=== PATIENT | male | born 1955 | race Asian ===

== ENCOUNTER 2017-10-12 08:33 | Emergency (ER) | payer OTHER ==
[~2017-10-12] VITALS: Ht 165.1 cm; Wt 81.6 kg
[2017-10-12] MEDS ORDERED: SODIUM CHLORIDE 0.9% 1,000 ML IV ONE (08:48)
[2017-10-12 09:05] LABS: Urine RBC None Seen /hpf (0 - 3)
[2017-10-12 09:12] LABS: Urine Bilirubin Negative (Negative); Urine Blood Negative /uL (Negative); Urine Color Yellow (Yellow); Urine Glucose Normal (Normal); Urine Ketone Negative (Negative); Urine Mucus FEW (None Seen); Urine Nitrite Negative (Negative); Urine Urobilinogen Normal (Negative); Urine pH 5.5 (5.0-8.0)
[2017-10-12 09:25] LABS: Basophils # (auto) 0.1 uL; Eosinophils # (auto) 0.3 uL; Hemoglobin 17.7 g/dL (13.5-17.5); Lymphocytes # (auto) 2.2 uL; Mean Corpuscular Volume 87.5 fL (80.0-100.0); Monocytes # (auto) 0.5 uL; Neutrophils # (auto) 3.4 uL; Nucleated Red Blood Cells % 0.1 %; Red Cell Distribution Width 13.2 % (11.8-14.3); White Blood Cell 6.5 10^3/uL (4.4-10.8)
[2017-10-12 09:28] LABS: Basophils % (auto) 1.1 % (0.0-2.0); Eosinophils % (auto) 4.4 % (0.0-7.0); Hematocrit 51.8 % (41.0-53.0); Lymphocytes % (auto) 33.8 % (10.0-50.0); Mean Corpuscular Hemoglobin 29.9 pg (28.0-32.0); Mean Corpuscular Hgb Conc. 34.2 g/dL (32.0-36.0); Monocytes % (auto) 7.8 % (0.0-12.0); Neutrophils % (auto) 52.9 % (37.0-80.0); Platelet Count (auto) 141 10^3/uL (140-450)
[2017-10-12 09:58] LABS: Alkaline Phosphatase 106 U/L (45-117); Anion Gap 11 (5-15); Aspartate Aminotransferase 27 U/L (15-37); BUN/Creatinine Ratio 13.3; Bilirubin, Total 0.6 mg/dL (0.2-1.0); Blood Urea Nitrogen 13 mg/dL (7-18); Calcium 8.4 mg/dL (8.5-10.1); Carbon Dioxide 26 mmol/L (21-32); Chloride 104 mmol/L (98-107); GFR African American 100 mL/min; GFR Non-African American 83 mL/min; Glucose 147 mg/dL (74-106); Magnesium 2.3 mg/dL (1.6-2.6); Potassium 4.1 mmol/L (3.5-5.1); Sodium 141 mmol/L (136-145); Total Protein 7.3 g/dL (6.4-8.2)
[2017-10-12 11:15] VITALS: BP 137/92
== END 2017-10-12 11:36 | disposition home or self-care (01) ==
LOC: ER 08:33
DX: G93.9 Disorder of brain, unspecified (principal); R10.13 Epigastric pain
CPT/HCPCS: 36415; 70450; 74176; 80053; 81001; 83735; 84484; 85025; 93005; 94761; 96360; 99285; J7030

== ENCOUNTER 2020-09-02 11:09 | Inpatient (IN) | payer OTHER ==
[~2020-09-02] VITALS: Ht 165.1 cm; Wt 81.4 kg
[2020-09-02 13:01] LABS: Basophils # (auto) 0 10 ^3/uL (0-0.2); Basophils % (auto) 0.6 % (0.0-2.0); Eosinophils # (auto) 0.3 10 ^3/uL (0-0.8); Eosinophils % (auto) 4.5 % (0.0-7.0); Hematocrit 49.7 % (41.0-53.0); Hemoglobin 16.6 g/dL (13.5-17.5); Lymphocytes # (auto) 1.3 10 ^3/uL (0.4-5.4); Lymphocytes % (auto) 18.9 % (10.0-50.0); Mean Corpuscular Hemoglobin 29.5 pg (28.0-32.0); Mean Corpuscular Hgb Conc. 33.4 g/dL (32.0-36.0); Mean Corpuscular Volume 88.2 fL (80.0-100.0); Monocytes # (auto) 0.7 10 ^3/uL (0-1.3); Monocytes % (auto) 10.1 % (0.0-12.0); Neutrophils # (auto) 4.4 10 ^3/uL (1.6-8.6); Neutrophils % (auto) 65.9 % (37.0-80.0); Platelet Count (auto) 126 10^3/uL (140-450); Red Blood Cells 5.63 10^6/uL (4.5-5.90); Red Cell Distribution Width 13.5 % (11.8-14.3); White Blood Cell 6.7 10^3/uL (4.4-10.8)
[2020-09-02 13:12] LABS: Albumin 3.7 g/dL (3.4-5.0); Calcium 8.7 mg/dL (8.5-10.1); Potassium 4.8 mmol/L (3.5-5.1)
[2020-09-02 13:18] LABS: BUN/Creatinine Ratio 11.6; Bilirubin, Total 0.8 mg/dL (0.2-1.0); Total Protein 7.2 g/dL (6.4-8.2)
[2020-09-02] MEDS ORDERED: ONDANSETRON HCL 4 MG/2 ML VIAL IV ONE (13:45)
[2020-09-02] MEDS ORDERED: metroNIDAZOLE 500MG/100ML 100 ML IV ONE (13:45)
[2020-09-02] MEDS ORDERED: MORPHINE SULFATE 4 MG/ML SYR/VIAL IV ONE (13:45)
[2020-09-02] MEDS ORDERED: PROMETHAZINE HCL 25 MG/ML 1ML IV PRN (15:45)
[2020-09-02] MEDS ORDERED: cefTRIAXone 1GM/50ML D5W 50 ML IV ONE (15:45)
[2020-09-02] MEDS ORDERED: ACETAMINOPHEN 500 MG TAB PO PRN (15:45)
[2020-09-02] MEDS ORDERED: MORPHINE SULF INJ 2 MG/ML SYRINGE 1ML IV PRN (15:45)
[2020-09-02] MEDS ORDERED: traMADol HCL 50 MG TAB PO PRN (15:45)
[2020-09-02] MEDS ORDERED: DEXTROSE (50%) 50ML SYRG IV PRN (15:45)
[2020-09-02] MEDS ORDERED: TEMAZEPAM 15 MG CAP PO PRN (15:45)
[2020-09-02] MEDS: ENOXAPARIN SOD 30 MG/0.3 ML SYRINGE SC SCH (16:35)
[2020-09-02] MEDS: FAMOTIDINE (10MG/ML) 2ML VL IV SCH (16:35)
[2020-09-02] MEDS: SODIUM CHLORIDE 0.9% 1,000 ML IV SCH ×2 (16:35→21:39)
[2020-09-02] MEDS: InsuLIN REG 1unit/0.01ml Soln (100units/ml) SC SCH ×2 (16:54→21:35)
[2020-09-02] MEDS: ACCU-CHEK COMFORT CURVE STRIP VI SCH ×2 (16:54→21:34)
[2020-09-02 18:09] LABS: Urine Bacteria NONE SEEN /hpf (None Seen); Urine Blood Negative /uL (Negative); Urine Specific Gravity 1.004 (1.001-1.035); Urine WBC 1 /hpf (0 - 3)
[2020-09-02 20:40] VITALS: BP 144/95
[2020-09-02] MEDS: metroNIDAZOLE 500MG/100ML 100 ML IV SCH (21:34)
[2020-09-02 22:00] VITALS: BP_SYST 144; BP_DIAS 77; BP_DIAS 95
[2020-09-03] MEDS ORDERED: METF-370 PO (00:42)
[2020-09-03] MEDS ORDERED: ATOR20TA50 PO (00:42)
[2020-09-03] MEDS: SODIUM CHLORIDE 0.9% 1,000 ML IV SCH ×3 (04:41→15:48)
[2020-09-03 05:00] VITALS: BP 137/86
[2020-09-03] MEDS: ACCU-CHEK COMFORT CURVE STRIP VI SCH ×4 (06:21→22:02)
[2020-09-03] MEDS: metroNIDAZOLE 500MG/100ML 100 ML IV SCH ×3 (06:21→21:49)
[2020-09-03] MEDS: InsuLIN REG 1unit/0.01ml Soln (100units/ml) SC SCH ×4 (06:24→22:02)
[2020-09-03 06:37] LABS: Basophils # (auto) 0 10 ^3/uL (0-0.2); Basophils % (auto) 0.4 % (0.0-2.0); Eosinophils # (auto) 0.1 10 ^3/uL (0-0.8); Eosinophils % (auto) 2.4 % (0.0-7.0); Hematocrit 46.8 % (41.0-53.0); Hemoglobin 15.8 g/dL (13.5-17.5); Lymphocytes # (auto) 0.9 10 ^3/uL (0.4-5.4); Lymphocytes % (auto) 16.8 % (10.0-50.0); Mean Corpuscular Hemoglobin 29.8 pg (28.0-32.0); Mean Corpuscular Hgb Conc. 33.7 g/dL (32.0-36.0); Mean Corpuscular Volume 88.4 fL (80.0-100.0); Monocytes # (auto) 0.6 10 ^3/uL (0-1.3); Monocytes % (auto) 10.4 % (0.0-12.0); Neutrophils # (auto) 3.8 10 ^3/uL (1.6-8.6); Platelet Count (auto) 123 10^3/uL (140-450); Red Cell Distribution Width 13.4 % (11.8-14.3); White Blood Cell 5.5 10^3/uL (4.4-10.8)
[2020-09-03 06:53] LABS: Albumin 3.2 g/dL (3.4-5.0); Calcium 7.9 mg/dL (8.5-10.1); Potassium 4.5 mmol/L (3.5-5.1)
[2020-09-03 06:57] LABS: BUN/Creatinine Ratio 10.7; Bilirubin, Total 0.5 mg/dL (0.2-1.0); Total Protein 6.2 g/dL (6.4-8.2)
[2020-09-03 08:46] VITALS: BP 130/70
[2020-09-03] MEDS: FAMOTIDINE (10MG/ML) 2ML VL IV SCH (11:28)
[2020-09-03] MEDS: ENOXAPARIN SOD 30 MG/0.3 ML SYRINGE SC SCH (11:28)
[2020-09-03] MEDS: cefTRIAXone 1GM/50ML D5W 50 ML IV SCH (11:28)
[2020-09-03 13:00] VITALS: BP 138/89
[2020-09-03 17:00] VITALS: BP 151/87
[2020-09-03 22:00] VITALS: BP_SYST 104; BP_SYST 115; BP_DIAS 58; BP_DIAS 59
[2020-09-04] MEDS: SODIUM CHLORIDE 0.9% 1,000 ML IV SCH ×2 (00:43→09:45)
[2020-09-04 05:00] VITALS: BP 127/73
[2020-09-04] MEDS: metroNIDAZOLE 500MG/100ML 100 ML IV SCH ×2 (06:00→14:00)
[2020-09-04] MEDS: InsuLIN REG 1unit/0.01ml Soln (100units/ml) SC SCH ×2 (06:28→11:30)
[2020-09-04] MEDS: ACCU-CHEK COMFORT CURVE STRIP VI SCH ×2 (06:29→11:30)
[2020-09-04 07:58] LABS: Potassium 4.3 mmol/L (3.5-5.1)
[2020-09-04 08:00] VITALS: BP 123/75
[2020-09-04 08:05] LABS: BUN/Creatinine Ratio 10.6; Calcium 7.9 mg/dL (8.5-10.1); Magnesium 2.4 mg/dL (1.6-2.6)
[2020-09-04] MEDS: cefTRIAXone 1GM/50ML D5W 50 ML IV SCH (09:00)
[2020-09-04] MEDS: ENOXAPARIN SOD 30 MG/0.3 ML SYRINGE SC SCH (10:00)
[2020-09-04] MEDS: FAMOTIDINE (10MG/ML) 2ML VL IV SCH (10:00)
[2020-09-04 12:00] VITALS: BP 145/72
[2020-09-04] MEDS ORDERED: LEVO500T21 PO (13:26)
[2020-09-04] MEDS ORDERED: METR500T PO (13:26)
[2020-09-04 17:00] VITALS: BP 159/81
== END 2020-09-04 17:50 | disposition home or self-care (01) | DRG 391 ==
LOC: ER 11:09 → OVERFLOW 11:10 → WEST WING 20:40
PROVIDERS: ADMIT Internal Medicine; ATTEND Internal Medicine
DX: K57.32 Diverticulitis of large intestine without perforation or abscess without bleeding (principal); N17.0 Acute kidney failure with tubular necrosis; K80.20 Calculus of gallbladder without cholecystitis without obstruction; N18.9 Chronic kidney disease, unspecified; D69.6 Thrombocytopenia, unspecified; E78.5 Hyperlipidemia, unspecified; E66.9 Obesity, unspecified; Z68.29 Body mass index [BMI] 29.0-29.9, adult; E11.22 Type 2 diabetes mellitus with diabetic chronic kidney disease; E11.65 Type 2 diabetes mellitus with hyperglycemia; I12.9 Hypertensive chronic kidney disease with stage 1 through stage 4 chronic kidney disease, or unspecified chronic kidney disease; Z82.49 Family history of ischemic heart disease and other diseases of the circulatory system; Z86.011 Personal history of benign neoplasm of the brain
CPT/HCPCS: 36415; 74176; 76775; 80048; 80053; 81001; 82140; 82962; 83036; 83690; 83735; 85025; 93005; G0378; J0696; J1815; J2405; J3490